=== PATIENT | male | born 1955 | race Caucasian/White ===

== ENCOUNTER 2016-08-18 12:27 | Emergency (ER) | payer MEDICAID ==
[2016-08-18 12:37] VITALS: O2SAT 95
--- NOTE | 2016-08-18 13:34 | EDPHY ---
H & P Stated Complaint: cough green mucus x 6 days--recent hernia operation Time Seen by Provider: 08/18/16 13:34 HPI/ROS: CHIEF COMPLAINT: Cough, congestion HISTORY OF PRESENT ILLNESS: The patient presents to the ED with a 6 day history of cough and congestion. The patient reportedly is visiting with a friend who is also sick with an upper respiratory infection. The patient does have a history of myocardial infarction but denies history of underlying lung disease, diabetes or other immunosuppression. The patient denies chest pain or dyspnea on exertion. The patient denies recent hospitalization. He does have a history of an outpatient hernia surgery done in May of this year. The patient does not smoke. REVIEW OF SYSTEMS: A comprehensive 10 point review of systems is otherwise negative aside from elements mentioned in the history of present illness. Source: Patient - Personal History Current Tetanus/Diphtheria Vaccine: Unsure Current Tetanus Diphtheria and Acellular Pertussis (TDAP): Unsure - Medical/Surgical History Hx Asthma: No Hx Chronic Respiratory Disease: No Hx Diabetes: No Hx Cardiac Disease: No Hx Renal Disease: No Hx Cirrhosis: No Hx Alcoholism: No Hx HIV/AIDS: No Hx Splenectomy or Spleen Trauma: No Other PMH: bilat abd hernia operation 08/10/16. [place] 09/14 stents - Social History Smoking Status: Never smoked - Physical Exam Exam: General Appearance: Alert, no distress Eyes: Pupils equal and round no pallor or injection ENT, Mouth: Mucous membranes moist Respiratory: There are no retractions, lungs are clear to auscultation Cardiovascular: Regular rate and rhythm Gastrointestinal: Abdomen is soft and nontender, no masses, bowel sounds normal Neurological: A&O, normal motor function, normal sensory exam, normal cranial nerves Skin: Warm and dry, no rashes Musculoskeletal: Neck is supple nontender Extremities: symmetrical, full range of motion Constitutional: Initial Vital Signs Temperature (C) 36.2 C 08/18/16 12:33 Heart Rate 72 08/18/16 12:33 Respiratory Rate 16 08/18/16 12:33 Blood Pressure 120/76 08/18/16 12:33 O2 Sat (%) 95 08/18/16 12:33 O2 Delivery Mode Room Air Allergies/Adverse Reactions: amoxicillin Allergy (Verified 08/18/16 12:31) penicillin G Allergy (Verified 08/18/16 12:31) Home Medications: Medication Instructions Recorded Albuterol [Ventolin Hfa Inhaler] 2 puffs IH QID PRN #1 mdi 08/18/16 Aspirin 08/18/16 Benzonatate [Tessalon Pearles (RX)] 100 mg PO BID PRN #10 cap 08/18/16 Lipitor 08/18/16 Lisinopril 08/18/16 Metoprolol ER-Hctz 100-12.5 mg 08/18/16 Medical Decision Making - Diagnostics Imaging Results: Imaging Impressions Chest X-Ray 08/18/16 13:34 Impression: Airways disease. ED Course/Re-evaluation: The patient presents to the ED with an acute cough consistent with bronchitis. He has no evidence of a pneumonia clinically or radiographically. The patient is not immunosuppressed or have history of underlying lung disease. He has been informed that antibiotics are not recommended in cases of acute bronchitis. The patient will be treated with a prescription for albuterol inhaler and Tessalon Perles. The patient has no abnormal vital signs noted. He has no symptoms suggestive of acute coronary syndrome or pulmonary embolism. He is given customary return precautions. Differential Diagnosis: Differential diagnosis considered includes asthma, bronchitis, pneumonia Departure - Departure Disposition: Home, Routine, Self-Care Clinical Impression: Acute bronchitis Condition: Good Instructions: Acute Bronchitis (ED) Additional Instructions: 1. Please use albuterol inhaler up to every 4 hours as needed for cough. 2. Tessalon Perles as needed for cough suppression. 3. Please return to the ED for worsening respiratory symptoms, fever or difficulty breathing as this may be the sign of a developing pneumonia. 4. There is no evidence of a pneumonia noted on your chest x-ray today. You do have bronchitis based upon your symptoms. The CDC does not recommend treating acute bronchitis with antibiotics in a person of your health status.
[2016-08-18 14:36] VITALS: BP 127/86; PULSE 68; RESP 18; TEMP 98.1
== END 2016-08-18 14:36 | disposition home or self-care (01) ==
DX: J20.9 Acute bronchitis, unspecified (principal); I25.2 Old myocardial infarction; Z95.5 Presence of coronary angioplasty implant and graft; Z79.82 Long term (current) use of aspirin

== ENCOUNTER 2018-01-11 11:51 | Emergency (ER) | payer MEDICAID, OTHER ==
[2018-01-11] MEDS ORDERED: IPRATROPIUM/ALBUTEROL 3 ML DEYVIAL IH ONE (13:11)
[2018-01-11] MEDS ORDERED: predniSONE 20 MG TAB PO ONE (13:11)
--- NOTE | 2018-01-11 13:12 | EDPHY ---
H & P Stated Complaint: c/o cough/cold sx x 4 days, thinks could be a rxn to flu shot 2 days before Time Seen by Provider: 01/11/18 12:59 HPI/ROS: CHIEF COMPLAINT: Cough, shortness of breath HISTORY OF PRESENT ILLNESS: 62-year-old male with asthma presents with cough and shortness of breath. Onset of a mild cough 4 days ago, gradually increasing and productive of yellowish sputum. Associated with wheezing and mild shortness of breath. No nasal congestion, sore throat or fever. Currently staying with a friend who has a cat. He is allergic to cats. REVIEW OF SYSTEMS: complete 10 point ROS reviewed and is negative except for the noted elements in the HPI - Medical/Surgical History Hx Asthma: No Hx Chronic Respiratory Disease: No Hx Diabetes: No Hx Cardiac Disease: Yes Hx Renal Disease: No Hx Cirrhosis: No Hx Alcoholism: No Hx HIV/AIDS: No Hx Splenectomy or Spleen Trauma: No Other PMH: hypertension, hyperlipidemia, arthritis, bilat abd hernia operation . [place] 09/14 stents - Social History Smoking Status: Never smoked Alcohol Use: Sober - Physical Exam Exam: General Appearance: Alert, pleasant, nontoxic-appearing Eyes: Pupils equal and round, no conjunctival pallor or injection ENT, Mouth: Mucous membranes moist Neck: Normal inspection Respiratory: Diffuse end expiratory wheezing Cardiovascular: Regular rate and rhythm Gastrointestinal: Abdomen is soft and nontender Neurological: A&O, nonfocal, normal gait Skin: Warm and dry Extremities: Nontender, no pedal edema Psychiatric: Mood and affect normal Constitutional: Initial Vital Signs Temperature (C) 36.3 C 01/11/18 12:10 Heart Rate 72 01/11/18 12:10 Respiratory Rate 16 01/11/18 12:10 Blood Pressure 120/87 H 01/11/18 12:10 O2 Sat (%) 93 01/11/18 12:10 O2 Delivery Mode Room Air Allergies/Adverse Reactions: amoxicillin Allergy (Verified 01/11/18 12:15) penicillin G Allergy (Verified 01/11/18 12:15) shellfish derived Allergy (Verified 01/11/18 12:15) Home Medications: Medication Instructions Recorded Aspirin 08/18/16 Lipitor 08/18/16 Lisinopril 08/18/16 Metoprolol ER-Hctz 100-12.5 mg 08/18/16 Albuterol [Proventil Inhaler HFA 2 puffs IH QID PRN #1 mdi 01/11/18 (*)] Zolpidem Tartrate [Ambien 5MG (*)] 5 mg PO HS PRN #6 tab 01/11/18 predniSONE 1 tab PO DAILY #15 tab 01/11/18 Medical Decision Making ED Course/Re-evaluation: This patient presents with bronchospasm, most likely secondary to known allergy to cats. A DuoNeb and prednisone 60 mg orally given. Feels much better. Continues to have scattered wheezing. Albuterol neb given. Lungs: few exp wheezes. Much improved overall. Will discharge home with an albuterol inhaler and prednisone. Differential Diagnosis: Differential diagnosis includes though it is not limited to pneumonia, pneumothorax, pulmonary embolism, hypoxia, CHF, pericarditis, acute coronary syndrome. - Data Points Medications Given: Discontinued Medications Albuterol (Proventil Neb) 3 ml IH EDNOW ONE Stop: 01/11/18 13:55 Last Admin: 01/11/18 14:00 Dose: 3 ml Albuterol/Ipratropium (Duoneb) 3 ml IH EDNOW ONE Stop: 01/11/18 13:12 Last Admin: 01/11/18 13:27 Dose: 3 ml Prednisone (Prednisone) 60 mg PO EDNOW ONE Stop: 01/11/18 13:12 Last Admin: 01/11/18 13:27 Dose: 60 mg Departure - Departure Disposition: Home, Routine, Self-Care Clinical Impression: Exacerbation of asthma Qualifiers: Asthma severity: mild Asthma persistence: unspecified Qualified Code(s): J45.901 - Unspecified asthma with (acute) exacerbation Condition: Good Instructions: Bronchospasm (ED) Additional Instructions: Drink plenty of fluids. Take the full course of prednisone. Return for worsening symptoms, fever or any concerns. Referrals: [facility] KITCHEN [Other] - As per Instructions Prescriptions: Albuterol [Proventil Inhaler HFA (*)] 2 puffs IH QID PRN #1 mdi PRN Reason: Short Of Breath/Dyspnea predniSONE 1 tab PO DAILY #15 tab Zolpidem Tartrate [Ambien 5MG (*)] 5 mg PO HS PRN #6 tab PRN Reason: insomnia
[2018-01-11] MEDS ORDERED: ALBUTEROL 3 ML DEYVIAL IH ONE (13:54)
[2018-01-11 14:26] VITALS: BP 139/83
== END 2018-01-11 14:34 | disposition home or self-care (01) ==
DX: J45.901 Unspecified asthma with (acute) exacerbation (principal); I10 Essential (primary) hypertension; E78.5 Hyperlipidemia, unspecified
CPT/HCPCS: J7512; J7613

== ENCOUNTER 2018-02-07 10:56 | Emergency (ER) | payer OTHER ==
--- NOTE | 2018-02-07 12:12 | EDPHY ---
H & P Time Seen by Provider: 02/07/18 12:10 HPI/ROS: Chief complaint. Breathing issues HPI. 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 He has had cough and congestion and shortness of breath for the last several days. He was seen 2 weeks ago and diagnosed with bronchitis. He was treated with DuoNeb and prednisone and improved and then return to his friend's house and developed wheezing. Symptoms seem to be worse at night. He otherwise has no chest pain or fever. He does have a history of asthma ROS 10 systems were reviewed and negative with the exception of the elements mentioned in the history of present illness Past Medical/Surgical History: Asthma, hypertension, dyslipidemia, mi in 2016 Social History: Single, nonsmoker, no alcohol Smoking Status: Never smoked Physical Exam: General Appearance: Alert well-developed male mild distress vital signs are stable Eyes: Pupils equal and round no pallor or injection. ENT, Mouth: Mucous membranes are moist. Respiratory: There are no retractions but there is end-expiratory wheezing Cardiovascular: Regular rate and rhythm. Gastrointestinal: Abdomen is soft and nontender, no masses, bowel sounds normal. Neurological: Awake and alert, sensory and motor exams grossly normal. Skin: Warm and dry, no rashes. Musculoskeletal: Neck is supple nontender. Extremities symmetrical, full range of motion. Psychiatric: Patient is oriented X 3, there is no agitation. Constitutional: Initial Vital Signs Temperature (C) 36.7 C 02/07/18 11:05 Heart Rate 77 02/07/18 11:05 Respiratory Rate 16 02/07/18 11:05 Blood Pressure 106/68 02/07/18 11:05 O2 Sat (%) 95 02/07/18 11:05 O2 Delivery Mode Room Air Allergies/Adverse Reactions: amoxicillin Allergy (Verified 02/07/18 11:03) penicillin G Allergy (Verified 02/07/18 11:03) shellfish derived Allergy (Verified 02/07/18 11:03) Home Medications: Medication Instructions Recorded Aspirin 08/18/16 Lipitor 08/18/16 Lisinopril 08/18/16 Metoprolol ER-Hctz 100-12.5 mg 08/18/16 Albuterol [Proventil Inhaler HFA 2 puffs IH QID PRN #1 mdi 01/11/18 (*)] Zolpidem Tartrate [Ambien 5MG (*)] 5 mg PO HS PRN #6 tab 01/11/18 predniSONE 1 tab PO DAILY #15 tab 01/11/18 Albuterol Hfa Anes Only [Proair 2 puffs IH QID PRN #1 mdi 02/07/18 Hfa Icu (*)] Zolpidem Tartrate [Ambien 5MG (*)] 5 mg PO HS #7 tab 02/07/18 predniSONE [Deltasone] 20 mg PO DAILY #12 tablet 02/07/18 Medical Decision Making Procedures: DuoNeb updraft and prednisone orally in the emergency department ED Course/Re-evaluation: Re-evaluation if the DuoNeb updraft patient is much improved. We will give him a 2nd albuterol updraft. Patient and I discussed treatment plan including criteria for return importance of follow-up further evaluation. He expresses understanding and agreement Differential Diagnosis: I think this is an allergic type bronchitis. No fever. Nothing to suggest acute coronary syndrome. Nothing to suggest pneumonia - Data Points Medications Given: Discontinued Medications Albuterol/Ipratropium (Duoneb) 3 ml IH EDNOW ONE Stop: 02/07/18 12:17 Last Admin: 02/07/18 12:37 Dose: 3 ml Prednisone (Prednisone) 60 mg PO EDNOW ONE Stop: 02/07/18 12:17 Last Admin: 02/07/18 12:38 Dose: 60 mg Departure - Departure Disposition: Home, Routine, Self-Care Clinical Impression: Acute bronchitis Qualifiers: Bronchitis organism: unspecified organism Qualified Code(s): J20.9 - Acute bronchitis, unspecified Condition: Good Instructions: Acute Bronchitis (ED) Additional Instructions: Use prednisone as prescribed. Albuterol inhaler using 2 puffs every 4 hr as needed for breathing Return for worsening symptoms Recheck in 2-3 days if not improving Referrals: [facility] KITCHEN [Other] - 2-3 days, if not improved Prescriptions: Albuterol Hfa Anes Only [Proair Hfa Icu (*)] 2 puffs IH QID PRN #1 mdi PRN Reason: Short Of Breath/Dyspnea predniSONE [Deltasone] 20 mg PO DAILY #12 tablet Zolpidem Tartrate [Ambien 5MG (*)] 5 mg PO HS #7 tab
[2018-02-07] MEDS ORDERED: predniSONE 20 MG TAB PO ONE (12:16)
[2018-02-07] MEDS ORDERED: IPRATROPIUM/ALBUTEROL 3 ML DEYVIAL IH ONE (12:16)
[2018-02-07 13:18] VITALS: BP 113/74
[2018-02-07] MEDS ORDERED: ALBUTEROL 3 ML DEYVIAL IH ONE (13:22)
== END 2018-02-07 13:50 | disposition home or self-care (01) ==
DX: J20.9 Acute bronchitis, unspecified (principal)
CPT/HCPCS: J7512; J7613